=== PATIENT | female | born 1995 | race African-American/Black ===

== ENCOUNTER 2018-10-18 12:56 | Emergency (ER) | payer OTHER ==
[~2018-10-18] VITALS: Ht 170.2 cm; Wt 117.9 kg
[2018-10-18 13:33] LABS: URINE BILIRUBIN NEGATIVE (Negative); URINE BLOOD 2+ (Negative); URINE CLARITY CLEAR; URINE COLOR YELLOW; URINE GLUCOSE-RANDOM* NEGATIVE (Negative); URINE KETONES NEGATIVE (Negative); URINE LEUKOCYTES-REFLEX NEGATIVE (Negative); URINE NITRITE-REFLEX NEGATIVE (Negative); URINE PROTEIN (DIPSTICK) NEGATIVE (Negative); URINE SPECIFIC GRAVITY 1.025 (1.005-1.035); URINE UROBILINOGEN 0.2 E.U./dl (0.2-1.0)
[2018-10-18 13:52] LABS: BACTERIA-REFLEX 1-9 Few /HPF (None Seen); CASTS None Seen /LPF (None Seen); CRYSTALS None Seen /LPF (None Seen); SQUAMOUS 0-3 Few /LPF (0-3); URINE RBC >20 Many /HPF (0-2); URINE WBC-REFLEX 0-5 Rare /HPF (0-5)
[2018-10-18 14:48] LABS: HEMATOCRIT 41.6 % (37.0-47.0); HEMOGLOBIN 13.5 gm/dL (12.0-15.0); MCH 25.5 pg (26.0-34.0); MCHC 32.6 g/dL (28.0-37.0); MCV 78.3 fL (80.0-100.0); PLATELET COUNT 282 thou/uL (150-400); RBC 5.31 mil/uL (4.20-5.00); RDW 13.6 % (10.5-14.5); WBC 4.2 thou/uL (4.0-11.0)
[2018-10-18 14:52] LABS: CALCIUM 9.2 mg/dL (8.5-10.1); CREATININE 0.9 mg/dL (0.6-1.0); POTASSIUM 3.7 mmol/L (3.5-5.1)
[2018-10-18 14:58] LABS: ALBUMIN 3.8 g/dL (3.4-5.0); TOTAL BILIRUBIN 0.4 mg/dL (<0.1-1.0); TOTAL PROTEIN 8.5 g/dL (6.4-8.2)
[2018-10-18] MEDS ORDERED: NAPROSYN500 MG PO (15:20)
[2018-10-18 15:30] VITALS: BP 129/81
[2018-10-18 15:56] LABS: ABSOLUTE NEUTROPHILS 2.8 thou/uL (1.4-8.2); ATYPICAL LYMPHS 2 %; PLATELET ESTIMATE NORMAL
== END 2018-10-18 15:30 | disposition home or self-care (01) ==
LOC: ER 12:56
PROVIDERS: Physician Assistant
DX: N93.9 Abnormal uterine and vaginal bleeding, unspecified (principal); R10.2 Pelvic and perineal pain; R10.11 Right upper quadrant pain; R10.30 Lower abdominal pain, unspecified; Z90.89 Acquired absence of other organs